=== PATIENT | male | born 1980 | race Caucasian/White ===

== ENCOUNTER 2019-09-05 21:31 | Emergency (ER) | payer MEDICAID, SELFPAY ==
[~2019-09-05] VITALS: Ht 177.8 cm; Wt 87.5 kg
[2019-09-05 21:33] VITALS: BP 122/85
--- NOTE | 2019-09-05 21:36 | NUR ---
PT TRIAGED IN OF TENT.
[2019-09-05] MEDS ORDERED: NACL 0.9% 1,000 ML IV STA (21:40)
--- NOTE | 2019-09-05 21:56 | NUR ---
PT AMBULATED TO BED #12
--- NOTE | 2019-09-05 21:58 | NUR ---
LAB AT BEDSIDE.
--- NOTE | 2019-09-05 22:00 | NUR ---
38 Y/O MALE PRESENTED TO ED C/O SOB . PT STATES HE HAD ORAL SURGERY YESTERDAY AND WOKE UP THIS MORNING SWEATING AND HIS HEAD FEELING HOT. PT STATES IN THE MORNING HE WAS HAVING ISSUES TRYING TO CATCH HIS BREATH. PT DENIES CHEST PAIN. PT STATES PAIN 6/10 PRESSURE ,IN HEAD. PT CURRENTLY DENIES SOB, PT PULSE OX 96%, BREATHING EVEN AND UNLABORED. PT DENIES N/V/D. PT DENIES BODY ACHES. PT STATES HE WAS GIVEN AMOXICILLIN D/T ORAL SURGERY. PT STATES HE TOOK THE AMOXICILLIN AND IBUPROFEN TODAY, UNSURE WHAT TIME. 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
[2019-09-05 22:16] LABS: HEMATOCRIT 50.6 % (36-52); MEAN CORPUSCULAR HEMOGLOBIN 30 pg (27-31); MEAN CORPUSCULAR HGB CONC 34 g/dL (33-37); MEAN CORPUSCULAR VOLUME 87.6 fL (80-94); PLATELET COUNT (AUTO) 155 K/uL (140-450); RED BLOOD CELL COUNT(AUTO) 5.78 MIL/uL (4.20-6.10); RED CELL DISTRIBUTION WIDTH 14.5 % (11.6-13.7); WHITE BLOOD COUNT (AUTO) 5.3 K/uL (4.8-10.8)
[2019-09-05 22:28] LABS: ANION GAP 17.6 (8-16); CARBON DIOXIDE 22.6 mmol/L (21-32); CREATININE 1.2 mg/dL (0.6-1.3); POTASSIUM 3.2 mmol/L (3.5-5.1); TOTAL BILIRUBIN 0.9 mg/dL (0.0-1.0)
[2019-09-05 22:40] LABS: PROTHROMBIN TIME 9.7 secs (10.8-13.4)
[2019-09-05 22:54] LABS: EOSINOPHILS % (MANUAL) 1 % (0-4); LYMPHOCYTES % (MANUAL) 9 % (20-46); MONOCYTES % (MANUAL) 10 % (5-12)
--- NOTE | 2019-09-05 23:19 | NUR ---
DR. BORJA AT BEDSIDE FOR EVALUATION.
[2019-09-05 23:58] VITALS: BP 136/89
--- NOTE | 2019-09-05 23:58 | NUR ---
Patient discharged with v/s stable. Written and verbal after care instructions given and explained. Patient verbalized understanding. Ambulatory with steady gait. All questions addressed prior to discharge. Advised to follow up with PMD.
== END 2019-09-05 23:58 | disposition home or self-care (01) ==
LOC: MED 21:31
DX: R06.02 Shortness of breath (principal); R50.9 Fever, unspecified; Z88.6 Allergy status to analgesic agent
CPT/HCPCS: 36415; 71045; 80053; 83880; 84484; 85025; 85610; 85730; 93005; 99285; J7030; Q0092

== ENCOUNTER 2021-03-01 16:44 | Emergency (ER) | payer MEDICAID ==
[~2021-03-01] VITALS: Ht 177.8 cm; Wt 92.5 kg
--- NOTE | 2021-03-01 16:51 | NUR ---
[facility]: RIGHT 20/15, LEFT 20/25, BOTH EYES 20/20
[2021-03-01 16:52] VITALS: BP 153/104
--- NOTE | 2021-03-01 16:52 | NUR ---
40 Y/O MALE C/O LT EYE PAIN SINCE SUNDAY. STATES "FEELS LIKE SOMETHING IS IN MY EYE." NO SWELLING OR REDNESS NOTED. STATES 8/10 PAIN. MEDHX: ONE KIDNEY ALLERGIES: NAPROXEN.
--- NOTE | 2021-03-01 16:52 | NUR ---
PATIENT AMBULATED TO BED 11.
--- NOTE | 2021-03-01 16:56 | NUR ---
DOMONIQUE SPENCE AT BEDSIDE EXAMINING PT
[2021-03-01] MEDS ORDERED: FLUORESCEIN OPTH STRIP 1 MG OP ONE (17:00)
[2021-03-01 17:24] VITALS: BP 153/104
== END 2021-03-01 17:22 | disposition home or self-care (01) ==
LOC: MED 16:44
DX: T15.82XA Foreign body in other and multiple parts of external eye, left eye, initial encounter (principal); X58.XXXA Exposure to other specified factors, initial encounter; Y93.89 Activity, other specified; Y92.89 Other specified places as the place of occurrence of the external cause; Y99.8 Other external cause status
CPT/HCPCS: 65205; 99284

== ENCOUNTER 2021-04-07 19:04 | Emergency (ER) | payer MEDICAID ==
[~2021-04-07] VITALS: Ht 177.8 cm; Wt 90.7 kg
[2021-04-07 19:20] VITALS: BP 140/90
--- NOTE | 2021-04-07 19:23 | NUR ---
TO LOBBY A/W BED AMBULATORY
[2021-04-07] MEDS ORDERED: FLUORESCEIN OPTH STRIP 1 MG OP ONE (21:15)
--- NOTE | 2021-04-07 21:20 | NUR ---
seen and examined by GREGORIO
[2021-04-07] MEDS ORDERED: ERYT5OIN51 OP (21:45)
[2021-04-07] MEDS ORDERED: ACET-8386 PO (21:45)
--- NOTE | 2021-04-07 21:54 | NUR ---
d/c wwithout receiving d/c instructions.
== END 2021-04-07 21:54 | disposition home or self-care (01) ==
LOC: MED 19:04
DX: S05.01XA Injury of conjunctiva and corneal abrasion without foreign body, right eye, initial encounter (principal); Z88.8 Allergy status to other drugs, medicaments and biological substances; Z79.899 Other long term (current) drug therapy; Z98.890 Other specified postprocedural states; X58.XXXA Exposure to other specified factors, initial encounter; Y93.89 Activity, other specified; Y92.89 Other specified places as the place of occurrence of the external cause; Y99.8 Other external cause status
CPT/HCPCS: 99283

== ENCOUNTER 2021-05-28 07:16 | Emergency (ER) | payer MEDICAID ==
[~2021-05-28] VITALS: Ht 177.8 cm; Wt 91.2 kg
[~2021-05-28 07:16] MED LIST: ACET-8386 PO; ERYT5OIN51 OP
[2021-05-28] MEDS ORDERED: TETRACAINE HCL/PF 0.5% OPTH 4 ML BTL OP ONE (07:30)
[2021-05-28 07:31] VITALS: BP 142/86
--- NOTE | 2021-05-28 07:35 | NUR ---
Patient ambulated with steady gait to bed 4.
[2021-05-28] MEDS ORDERED: TOMOMETER 1 DEV DEV MC ONE (08:05)
[2021-05-28] MEDS ORDERED: FLUORESCEIN OPTH STRIP 1 MG OP ONE (08:05)
--- NOTE | 2021-05-28 08:21 | NUR ---
40 Y/O M PRESENTS TO ED WITH L EYE PAIN. PT STATES WOKE UP SUNDAY MORNING FEELING LIKE THERE WAS SOMETHING IN HIS L EYE, NO PRECIPITATING FACTORS. PT DOUBLE VACCINATED WITH PFIZER, HAS FLU VACCINE. DENIES SICK CONTACTS. DENIES N/V/D; SKIN IS PINK/WARM/DRY; AAOX4 WITH EVEN AND STEADY GAIT; LUNGS CLEAR BL; HR EVEN AND REGULAR; PT DENIES ANY FEVER, CP, SOB, OR COUGH AT THIS TIME; PATIENT STATES PAIN OF 0/10 AT THIS TIME; VSS; PATIENT POSITIONED FOR COMFORT; HOB ELEVATED; BEDRAILS UP X2; BED DOWN. ER MD MADE AWARE OF PT STATUS. PMH: DONATED 1 KIDNEY MEDS: DENIES Addendum: 05/28/21 at 0843 by PAIGE 40 Y/O M PRESENTS TO ED WITH L EYE PAIN. PT STATES WOKE UP SUNDAY MORNING FEELING LIKE THERE WAS SOMETHING IN HIS L EYE, NO PRECIPITATING FACTORS. PT DOUBLE VACCINATED WITH PFIZER, HAS FLU VACCINE. DENIES SICK CONTACTS. DENIES N/V/D; SKIN IS PINK/WARM/DRY; AAOX4 WITH EVEN AND STEADY GAIT; LUNGS CLEAR BL; HR EVEN AND REGULAR; PT DENIES ANY FEVER, CP, SOB, OR COUGH AT THIS TIME; PATIENT STATES PAIN OF 0/10 AT THIS TIME; VSS; PATIENT POSITIONED FOR COMFORT; HOB ELEVATED; BEDRAILS UP X2; BED DOWN. ER MADE AWARE OF PT STATUS. PMH: DONATED 1 KIDNEY MEDS: DENIES ALLERGIES: NAPROXEN
[2021-05-28] MEDS ORDERED: ERYT5OIN58 LEFT EYE (08:46)
[2021-05-28] MEDS ORDERED: CIPR7.5S LEFT EYE (08:46)
[2021-05-28 09:00] VITALS: BP 142/86
--- NOTE | 2021-05-28 09:00 | NUR ---
Patient discharged with v/s stable. Written and verbal after care instructions given and explained. Patient alert, oriented and verbalized understanding of instructions. Ambulatory with steady gait. All questions addressed prior to discharge. ID band removed. Patient advised to follow up with PMD. Rx of CIPRODEX, ERYTHROMYCIN given. Patient educated on indication of medication including possible reaction and side effects. Opportunity to ask questions provided and answered.
== END 2021-05-28 09:00 | disposition home or self-care (01) ==
LOC: MED 07:16
DX: H57.12 Ocular pain, left eye (principal); R03.0 Elevated blood-pressure reading, without diagnosis of hypertension; Z88.8 Allergy status to other drugs, medicaments and biological substances; Z98.890 Other specified postprocedural states; Z79.899 Other long term (current) drug therapy
CPT/HCPCS: 99283